=== PATIENT | female | born 1975 | race Native Hawaiian/Other Pacific Islander ===

== ENCOUNTER 2020-02-28 07:23 | Emergency (ER) | payer OTHER ==
[~2020-02-28] VITALS: Ht 170.2 cm; Wt 131.5 kg
[2020-02-28 07:38] VITALS: TEMP 98.3
[2020-02-28 08:04] LABS: PLATELET COUNT 293 K/uL (152-353)
[2020-02-28 10:17] VITALS: BP 144/84
== END 2020-02-28 10:17 | disposition home or self-care (01) ==
LOC: ED 07:23
PROVIDERS: Emergency Medicine Emergency Medical Services
DX: R60.0 Localized edema (principal)
CPT/HCPCS: 80053; 81000; 83880; 85027; 99283

== ENCOUNTER 2021-11-29 00:02 | Emergency (ER) | payer OTHER ==
[~2021-11-29] VITALS: Ht 170.2 cm; Wt 170.1 kg
[2021-11-29 00:52] LABS: PLATELET COUNT 320 K/uL (152-353)
[2021-11-29 00:58] LABS: POTASSIUM 3.3 mmol/L (3.6-5.2)
[2021-11-29 01:09] LABS: PARTIAL THROMBOPLASTIN TIME 22.3 SECONDS (24.5-33.6)
[2021-11-29 01:55] VITALS: BP 141/86; TEMP 97.4
== END 2021-11-29 01:55 | disposition home or self-care (01) ==
LOC: ED 00:02
PROVIDERS: Hospitalist
DX: I50.9 Heart failure, unspecified (principal); L03.116 Cellulitis of left lower limb; L03.115 Cellulitis of right lower limb
CPT/HCPCS: 36415; 80053; 82550; 83880; 84484; 85027; 85610; 85730; 93005; 96365; 96375; 99284; J1885; J1940; J2543